=== PATIENT | female | born 1975 | race Caucasian/White ===

== ENCOUNTER 2019-01-15 11:14 | Emergency (ER) | payer OTHER ==
[~2019-01-15] VITALS: Ht 157.5 cm; Wt 79.4 kg
[~2019-01-15 11:14] MED LIST: ALLEGRA-D 24 H1 EACH PO; CELEXA40 MG PO; CYCLOBENZAPRINE10 MG PO; LIPITOR20 MG PO; NORCO 5-325 TA1 EACH PO
[2019-01-15] MEDS ORDERED: ATORVASTATIN CA20 MG PO (11:30)
[2019-01-15] MEDS ORDERED: LISINOPRIL20 MG PO (11:30)
== END 2019-01-15 12:23 | disposition home or self-care (01) ==
LOC: ED 11:14
DX: S93.602A Unspecified sprain of left foot, initial encounter (principal); Z88.2 Allergy status to sulfonamides; Z88.7 Allergy status to serum and vaccine; Z88.5 Allergy status to narcotic agent; Z79.899 Other long term (current) drug therapy; X50.1XXA Overexertion from prolonged static or awkward postures, initial encounter
CPT/HCPCS: 73630; 99283

== ENCOUNTER 2021-10-28 13:42 | Emergency (ER) | payer OTHER ==
[~2021-10-28] VITALS: Ht 157.5 cm; Wt 79.4 kg
[~2021-10-28 13:42] MED LIST changes: +ATORVASTATIN CA20 MG PO; +LISINOPRIL20 MG PO
[2021-10-28] MEDS ORDERED: VALACYCLOVIR1000 MG PO (15:59)
[2021-10-28] MEDS ORDERED: BUPROPION XL300 MG PO (15:59)
[2021-10-28] MEDS ORDERED: FLUOXETINE HCL60 MG PO (16:00)
== END 2021-10-28 19:11 | disposition home or self-care (01) ==
LOC: ED 13:42
DX: S06.0X0A Concussion without loss of consciousness, initial encounter (principal); I10 Essential (primary) hypertension; J45.909 Unspecified asthma, uncomplicated; E78.5 Hyperlipidemia, unspecified; Z88.2 Allergy status to sulfonamides; Z88.0 Allergy status to penicillin; Z88.5 Allergy status to narcotic agent; Z88.7 Allergy status to serum and vaccine; Z79.899 Other long term (current) drug therapy; W18.30XA Fall on same level, unspecified, initial encounter; W22.8XXA Striking against or struck by other objects, initial encounter
CPT/HCPCS: 99283

== ENCOUNTER 2024-10-21 06:46 | Day surgery (SDC) | payer OTHER ==
[~2024-10-21] VITALS: Ht 157.5 cm; Wt 91.8 kg
[~2024-10-21 06:46] MED LIST changes: +BUPROPION XL300 MG PO; +FLUOXETINE HCL60 MG PO; +MIDAZOLAM HCL 5 MG/5 ML VIAL IV PRN; +VALACYCLOVIR1000 MG PO; +fentaNYL citrate 100 MCG/2 ML VIAL IV PRN
[2024-10-21 06:56] VITALS: BP 145/79
[2024-10-21] MEDS ORDERED: ALLEGRA ALLERGY60 MG PO (06:58)
[2024-10-21] MEDS ORDERED: LIDOCAINE HCL 1% 5 ML SDV INJ ONE (07:00)
[2024-10-21] MEDS ORDERED: LACTATED RINGER'S 1,000 ML IV SCH (07:00)
[2024-10-21] MEDS ORDERED: IBLOOD GLUCOSE TEST STRIP 1 EA TEST VI PRN (07:00)
[2024-10-21] MEDS ORDERED: fentaNYL citrate 100 MCG/2 ML VIAL ONE (07:01)
[2024-10-21] MEDS ORDERED: MIDAZOLAM HCL 5 MG/5 ML VIAL ONE (07:01)
--- NOTE | 2024-10-21 08:01 | NUR ---
10/21/24 0801 Bienvenido,Ruthann 0754 PT ARRIVED TO PACU ON 3L VIA NC PT WAKES TO TACTILE STIMULI AND EASILY FALLS BACK TO SLEEP. VSS. PT SNORING OFF AND ON.
--- NOTE | 2024-10-21 08:54 | NUR ---
patient returns to day surgery from PACU to room 11. Report taken from NAE Beavers. Patient had colonoscopy under concious sedation. NAE Beavers, states that patient is still sleepy and oxygent saturations are a little low and would like to recover more in day surgery. Upon arrival, oxygen saturations are 92%-93%. Patient is awake but drowsy and is sipping on some water. She denies any nausea or pain. Pulse oximeter kept on patient's finger to monitor saturations. She denies any needs at this time. Mother is at bedside. Call light within reach.
[2024-10-21 08:56] VITALS: BP 119/80
[2024-10-21 08:57] VITALS: BP 113/86
--- NOTE | 2024-10-21 09:12 | NUR ---
checking on patient. patient is still drowsy but wakes easily to verbal stimuli. Her oxygen saturations are 95% on room air. Patient allowed to get dressed at this time.
--- NOTE | 2024-10-21 09:20 | NUR ---
patient is dressed. discharge instructions reviewed with patient again and she expressed understanding. IV removed from right hand. 0925- patient discharged from unit via wheelchair where her mom is to take her home.
--- NOTE | 2024-10-21 09:40 | OR ---
[facility] [address], [place] [address] Signed DATE OF OPERATION: 10/21/2024 SURGEON: Milton Le MD PREOPERATIVE DIAGNOSES: 1. Right colectomy for diverticular disease in 2002 at age 27. 2. Diarrhea following right colectomy. 3. Father with colon cancer in his 70s. 4. Irritable bowel syndrome. POSTOPERATIVE DIAGNOSES: 1. Minimal sigmoid diverticulosis. 2. Ileocolonic anastomosis in proximal transverse colon at 115 cm. PROCEDURES: Colonoscopy without biopsy. ESTIMATED BLOOD LOSS: None. INDICATIONS: Sherice is a -[id number]-[id number] obese female, asked to see me for followup colonoscopy. When she lived in [place], [place] she had a right colectomy for diverticular disease with Dr. Mago Hernandez done laparoscopically in 2002 at the age of 27. She said prior to her colectomy, she had irritable bowel syndrome. Now it is mostly diarrhea that the right colon is gone and her gallbladder has been removed. She told me her father had colon cancer in his 70s. In 2013 when she lived in [place], she had a normal colonoscopy. She has been asked to see me for a followup colonoscopy due to her age and her family history. In the office, I gave her a pamphlet on colonoscopy. We had reviewed the nature of the test. There is risk including, but not limited to gas bloating, crampy abdominal pain, bleeding, perforation requiring surgery, and missed diagnosis. We also reviewed the written instructions for a bowel prep line by line. She also understands the need for IV conscious sedation. She understands an adult person has to take her home afterwards. She said that would likely be her mother. She had expressed understanding and wished to proceed. DESCRIPTION OF PROCEDURE: Sherice was taken into our endoscopy suite, placed in the left lateral decubitus position. She was given IV sedation with 6 mg of Versed and 150 mcg of fentanyl to cover the case. A digital rectal exam was performed. This was unremarkable. There Electronically Signed By: MILTON LE MD 10/21/24 0940 PATIENT NAME: SHERICE CASTILLO OPERATIVE REPORT DATE OF : 71 REPORT #: [id number] PHYSICIAN: MILTON LE MD PCP: SHANELL SIN REPORT IS CONFIDENTIAL AND NOT TO BE RELEASED WITHOUT AUTHORIZATION [facility] [address], [place] [address] Signed were no external hemorrhoids. She had good sphincter tone. There were no masses. The adult colonoscope had been introduced and advanced readily up into the proximal transverse colon. We could easily see her [id number] anastomosis. It was about 115 cm from the anus. Scope was then slowly withdrawn. We saw just a few tiny diverticula in the sigmoid colon. There were no polyps. The rectum was unremarkable. Upon retroflexion of scope she has very minimal if any internal hemorrhoid tissue. After this, the gas was suctioned out, colonoscope removed. Sherice tolerated the procedure quite well. RECOMMENDATIONS: Sherice can follow up in 5 years for repeat colonoscopy given her family history of colon cancer. Milton Le MD ALB/MODL /[id number] cc: CLINT Payton MD Copies: SHANELL SIN ANDREW L MD ~ Electronically Signed By: MILTON LE MD 10/21/24 0940 PATIENT NAME: SHERICE CASTILLO OPERATIVE REPORT DATE OF : 71 REPORT #: [id number] PHYSICIAN: MILTON LE MD PCP: SHANELL SIN REPORT IS CONFIDENTIAL AND NOT TO BE RELEASED WITHOUT AUTHORIZATION
== END 2024-10-21 09:24 | disposition home or self-care (01) ==
LOC: DS 06:46 → DSVR 06:47 → DS 06:47
PROVIDERS: ATTEND Colon & Rectal Surgery
PROC: 0DJD8ZZ Inspection of Lower Intestinal Tract, Via Natural or Artificial Opening Endoscopic (ICD-10-PCS; principal; 2024-10-21 07:30)
DX: K58.9 Irritable bowel syndrome, unspecified (principal); K63.89 Other specified diseases of intestine; E66.9 Obesity, unspecified; K57.30 Diverticulosis of large intestine without perforation or abscess without bleeding; E78.00 Pure hypercholesterolemia, unspecified; I10 Essential (primary) hypertension; J45.909 Unspecified asthma, uncomplicated; Z80.0 Family history of malignant neoplasm of digestive organs; Z88.0 Allergy status to penicillin; Z88.1 Allergy status to other antibiotic agents; Z88.2 Allergy status to sulfonamides; Z88.5 Allergy status to narcotic agent; Z90.49 Acquired absence of other specified parts of digestive tract; Z68.36 Body mass index [BMI] 36.0-36.9, adult
CPT/HCPCS: 99153; G0500; J2250; J3010; J7121